=== PATIENT | male | born 2000 | race Hispanic/Latino ===

== ENCOUNTER 2021-05-13 23:44 | Emergency (ER) | payer BC ==
[~2021-05-13] VITALS: Ht 172.7 cm; Wt 79.4 kg
--- NOTE | 2021-05-14 12:48 | EKG ---
[facility] [address] [place], [place] [address] Signed Normal sinus rhythm Nonspecific ST abnormality Abnormal ECG No previous ECGs available Confirmed by YOLIE WOLFE DO ([id number]) on 05/14/2021 12:47:45 PM Electronically Signed By: YOLIE WOLFE DO 05/14/21 1248 PATIENT NAME: MARIBELL MCGOVERN Electrocardiogram DATE OF : [birth year] PHYSICIAN: YOLIE WOLFE DO REPORT #: [id number] REPORT IS CONFIDENTIAL AND NOT TO BE RELEASED WITHOUT AUTHORIZATION
== END 2021-05-14 01:58 | disposition home or self-care (01) ==
LOC: ED 23:44
DX: R00.2 Palpitations (principal)
CPT/HCPCS: 80053; 83735; 84484; 85025; 93005; 93010; 99285-25